=== PATIENT | male | born 1975 | race Caucasian/White ===

== ENCOUNTER 2017-02-19 17:55 | Emergency (ER) | payer BC ==
[2017-02-19] MEDS ORDERED: Ketorolac 60 MG/2 ML SDV IM ONE (19:01)
--- NOTE | 2017-02-19 19:05 | EDM.PDOC ---
ED HPI GENERAL MEDICAL PROBLEM - General Chief Complaint: Back Pain or Injury Stated Complaint: Back pain Time Seen by Provider: 02/19/17 18:40 Source of Information: Reports: Patient, RN Notes Reviewed History Limitations: Reports: No Limitations - History of Present Illness INITIAL COMMENTS - FREE TEXT/NARRATIVE: 41 year old male presents to the ED today with 2-3 day history of low back pain that radiates down his left leg. He initially felt he could be constipated. He took a bottle of magnesium citrate. He's had several bowel movements with no improvement in pain. He says his legs feel numb at times but he's had no difficulty walking or weakness. He's had no loss of bowel or bladder function. He was evaluated in [place] yesterday. He was given a Toradol injection and a muscle relaxer. He said the toradol did help. He denies any heavy lifting , fall, or injury to his back. He has no history of back problems. He feels he is having muscle spasms. He has no history of kidney problems. He denies dysuria , frequency, hematuria. The pain is worse with sitting. He was in meetings all day today which seemed to worsen his pain. The pain improves with standing. 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 Back Pain Score (Numeric/FACES): 7 - Related Data Allergies Allergy/AdvReac Type Severity Reaction Status Date / Time erthromycin Allergy Hives Uncoded 02/19/17 18:31 Home Meds: Home Meds Orphenadrine [Norflex] 100 mg PO BID #15 tab.er 02/19/17 [Rx] oxyCODONE HCl/Acetaminophen [Percocet 5-325 mg Tablet] 1 - 2 each PO Q6H PRN # 15 tablet 02/19/17 [Rx] predniSONE [Prednisone] 20 mg PO BID #10 tablet 02/19/17 [Rx] Past Medical History Musculoskeletal History: Reports: Other (See Below) Other Musculoskeletal History: 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 Denies: Fever, Chills GI/Abdominal: Reports: Constipation. Denies: Abdominal Pain, Diarrhea, Nausea, Vomiting : Reports: No Symptoms. Denies: Dysuria, Flank Pain, Frequency, Hematuria, Urgency Musculoskeletal: Reports: Back Pain, Muscle Pain Neurological: Reports: Numbness, Paresthesia. Denies: Tingling, Difficulty Walking, Weakness ED EXAM,LOWER BACK PAIN/INJURY - Physical Exam Exam: See Below Exam Limited By: No Limitations General Appearance: Alert, Mild Distress, Obese Respiratory/Chest: No Respiratory Distress, Lungs Clear, Normal Breath Sounds Cardiovascular: Regular Rate, Rhythm GI/Abdominal: Normal Bowel Sounds, Soft, Non-Tender, No Distention Back Exam: Muscle Spasm, Paraspinal Tenderness, Other (tenderness with palpation to bilateral SI joints. ). No: CVA Tenderness (L), CVA Tenderness (R) Extremities: Normal Inspection, Normal Range of Motion Neurological: Alert, Normal Mood/Affect, Normal Gait, No Motor/Sensory Deficits , Oriented x 3. No: Saddle Anesthesia, Difficulty Walking Skin Exam: Warm, Dry, Intact, Normal Color, No Rash Course - Vital Signs Last Recorded V/S: Last Vital Signs Temp 98.1 F 02/19/17 18:34 Pulse 85 02/19/17 18:34 Resp 20 02/19/17 18:34 BP 140/88 02/19/17 18:34 Pulse Ox 96 02/19/17 18:34 - Orders/Labs/Meds Meds: Medications Discontinued Medications Generic Name Dose Route Start Last Admin Trade Name Freq PRN Reason Stop Dose Admin Diazepam 5 mg 02/19/17 19:01 02/19/17 19:17 Valium IM 02/19/17 19:02 5 mg ONETIME ONE Administration Ketorolac Tromethamine 60 mg 02/19/17 19:01 02/19/17 19:16 Toradol IM 02/19/17 19:02 60 mg ONETIME ONE Administration - Re-Assessments/Exams Free Text/Narrative Re-Assessment/Exam: Patient was offered a CT scan and/OR conservative management. His exam is consistent with sciatica and low back muscle spasm. He would prefer conservative treatment. Will start him on prednisone and provide a small Rx for Percocet. Will prescribe Norflex so he can still work. He will f/u with his PCP next week for recheck. He was educated on return precautions. He will be treated with Valium and Toradol in the ER. Departure - Departure Time of Disposition: 19:02 Disposition: Home, Self-Care 01 Condition: Good Clinical Impression: Lumbago with sciatica, left side Qualifiers: Chronicity: acute Back pain laterality: left Qualified Code(s): M54.42 - Lumbago with sciatica, left side - Discharge Information Prescriptions: Orphenadrine [Norflex] 100 mg PO BID #15 tab.er oxyCODONE HCl/Acetaminophen [Percocet 5-325 mg Tablet] 1 - 2 each PO Q6H PRN # 15 tablet PRN Reason: Pain predniSONE [Prednisone] 20 mg PO BID #10 tablet Instructions: Sciatica, [id number], Back Pain, Adult, [id number] Referrals: PCP,Not In Area [Primary Care Provider] - Forms: ED Department Discharge Additional Instructions: Gentle stretching to back. Heating pad to help relieve muscle spasm Norflex 100mg every 12 hours for muscle spasm Prednisone 20mg twice a day for 5 days Percocet 1-2 tabs every 6 hours as needed for more severe pain No driving for at least 8 hours after taking Percocet. Follow-up with your primary care provider on Thursday for recheck Return to nearest ER with worsening pain, loss of bowel or bladder function, difficulty walking, or any additional problems
== END 2017-02-19 19:20 | disposition home or self-care (01) ==
LOC: JD.ED 17:55
DX: M54.42 Lumbago with sciatica, left side (principal); Z88.1 Allergy status to other antibiotic agents
CPT/HCPCS: 96372; 99283; J1885; J3360